=== PATIENT | female | born 1945 | race Caucasian/White ===

== ENCOUNTER 2019-02-26 15:38 | Outpatient (CLI) | payer BC ==
[~2019-02-26 15:38] MED LIST: CHOL100046 PO; FISH1CAP15 PO; GLUC15006 PO; HYDR-3972 PO; LEVO1CAP8 PO; LEVO50TA PO; MAGN400T28 PO; PRED20TA PO; TRIA1CAP6 PO
== END 2019-02-26 23:59 | disposition home or self-care (01) ==
LOC: RT 15:38
PROVIDERS: ATTEND Internal Medicine Infectious Disease
DX: J67.8 Hypersensitivity pneumonitis due to other organic dusts (principal); A31.0 Pulmonary mycobacterial infection
CPT/HCPCS: 94010; 94727; 94729